=== PATIENT | female | born 1990 | race Two or more races ===

== ENCOUNTER → 2016-07-28 | Outpatient (CLI) | payer BC | END | disposition home or self-care (01) | LOC: LAB 10:00 | PROVIDERS: ATTEND Obstetrics & Gynecology | DX: R87.619 Unspecified abnormal cytological findings in specimens from cervix uteri (principal) ==

== ENCOUNTER → 2016-12-28 | Outpatient (CLI) | payer BC | END | disposition home or self-care (01) | LOC: LAB 09:13 | PROVIDERS: ATTEND Obstetrics & Gynecology | DX: Z34.00 Encounter for supervision of normal first pregnancy, unspecified trimester (principal) | CPT/HCPCS: 36415; 84144; 84702 ==

== ENCOUNTER → 2017-01-03 | Outpatient (CLI) | payer BC ==
[2017-01-03 10:06] LABS: Urine RBC None Seen /hpf (0 - 4)
[2017-01-03 10:34] LABS: Urine Bilirubin Negative (Negative); Urine Blood Negative /uL (Negative); Urine Color Yellow (Yellow); Urine Glucose Normal (Normal); Urine Ketone Negative (Negative); Urine Nitrite Negative (Negative); Urine Squamous Epithelial Cell FEW /hpf (<5); Urine Urobilinogen Normal (Negative)
== END | disposition home or self-care (01) ==
LOC: LAB 08:49
PROVIDERS: ATTEND Obstetrics & Gynecology
DX: Z34.80 Encounter for supervision of other normal pregnancy, unspecified trimester (principal); Z11.3 Encounter for screening for infections with a predominantly sexual mode of transmission; Z31.430 Encounter of female for testing for genetic disease carrier status for procreative management
CPT/HCPCS: 36415; 81001; 81220; 83036; 84702; 86703

== ENCOUNTER → 2017-02-21 | Outpatient (CLI) | payer BC ==
[2017-02-21 10:17] LABS: Basophils # (auto) 0 uL; Basophils % (auto) 0.3 % (0.0-2.0); Eosinophils # (auto) 0 uL; Eosinophils % (auto) 0.4 % (0.0-7.0); Hematocrit 42.5 % (36.0-46.0); Hemoglobin 14.8 g/dL (12.2-16.2); Lymphocytes # (auto) 2.3 uL; Lymphocytes % (auto) 21.3 % (10.0-50.0); Mean Corpuscular Hemoglobin 31.8 pg (28.0-32.0); Mean Platelet Volume 8.1 fL (6.9-10.8); Monocytes # (auto) 0.7 uL; Monocytes % (auto) 6.5 % (0.0-12.0); Neutrophils # (auto) 7.8 uL; Neutrophils % (auto) 71.5 % (37.0-80.0); Nucleated Red Blood Cells % 0.1 %; Platelet Count (auto) 284 10^3/uL (140-450); Red Cell Distribution Width 13.4 % (11.8-14.3); White Blood Cell 10.9 10^3/uL (4.4-10.8)
== END | disposition home or self-care (01) ==
LOC: LAB 09:51
PROVIDERS: ATTEND Obstetrics & Gynecology
DX: Z34.80 Encounter for supervision of other normal pregnancy, unspecified trimester (principal); R82.79 Other abnormal findings on microbiological examination of urine
CPT/HCPCS: 36415; 85025; 86592; 86762; 86850; 86900; 86901; 87086; 87340

== ENCOUNTER → 2017-05-31 | Outpatient (CLI) | payer BC ==
[2017-05-31 09:14] LABS: Basophils # (auto) 0 uL; Basophils % (auto) 0.3 % (0.0-2.0); Eosinophils # (auto) 0 uL; Eosinophils % (auto) 0.4 % (0.0-7.0); Hematocrit 38.3 % (36.0-46.0); Lymphocytes % (auto) 16.3 % (10.0-50.0); Mean Corpuscular Hemoglobin 30.7 pg (28.0-32.0); Mean Corpuscular Volume 90.3 fL (80.0-100.0); Mean Platelet Volume 7.9 fL (6.9-10.8); Monocytes # (auto) 0.8 uL; Monocytes % (auto) 6.5 % (0.0-12.0); Neutrophils # (auto) 9.4 uL; Neutrophils % (auto) 76.5 % (37.0-80.0); Nucleated Red Blood Cells % 0.1 %; Platelet Count (auto) 282 10^3/uL (140-450); White Blood Cell 12.3 10^3/uL (4.4-10.8)
== END | disposition home or self-care (01) ==
LOC: LAB 08:34
PROVIDERS: ATTEND Obstetrics & Gynecology
DX: O99.810 Abnormal glucose complicating pregnancy (principal); Z3A.00 Weeks of gestation of pregnancy not specified
CPT/HCPCS: 36415; 82951; 85025

== ENCOUNTER → 2017-07-11 | Outpatient (CLI) | payer BC ==
[~2017-07-11] MED LIST: PREN-153 OR
[2017-07-11 15:32] LABS: Alcohol, Urine < 3.0 mg/dL (0-5); Amphetamine Screen, Urine NEGATIVE (NEGATIVE); Barbiturate Scree,Urine NEGATIVE (NEGATIVE); Benzodiazephine Screen, Urine NEGATIVE (NEGATIVE); Cannabinoid Screen, Urine NEGATIVE (NEGATIVE); Cocaine Screen, Urine NEGATIVE (NEGATIVE); Opiate Scree,Urine NEGATIVE (NEGATIVE); Phencyclidine Screen, Urine NEGATIVE (NEGATIVE)
== END | disposition home or self-care (01) ==
LOC: LAB 14:57
PROVIDERS: ATTEND Obstetrics & Gynecology
DX: Z34.00 Encounter for supervision of normal first pregnancy, unspecified trimester (principal); Z3A.00 Weeks of gestation of pregnancy not specified
CPT/HCPCS: 80307

== ENCOUNTER → 2017-08-01 | Outpatient (CLI) | payer BC ==
[2017-08-01 09:54] LABS: Basophils # (auto) 0.1 uL; Basophils % (auto) 0.8 % (0.0-2.0); Eosinophils # (auto) 0.1 uL; Eosinophils % (auto) 0.6 % (0.0-7.0); Hematocrit 40.6 % (36.0-46.0); Hemoglobin 13.8 g/dL (12.2-16.2); Lymphocytes # (auto) 1.8 uL; Lymphocytes % (auto) 17.6 % (10.0-50.0); Mean Corpuscular Hemoglobin 30.4 pg (28.0-32.0); Mean Corpuscular Volume 89.4 fL (80.0-100.0); Monocytes # (auto) 0.7 uL; Monocytes % (auto) 6.5 % (0.0-12.0); Neutrophils # (auto) 7.8 uL; Neutrophils % (auto) 74.5 % (37.0-80.0); Nucleated Red Blood Cells % 0.1 %; Platelet Count (auto) 298 10^3/uL (140-450); Red Blood Cells 4.54 10^6/uL (4.0-5.20); Red Cell Distribution Width 14.2 % (11.8-14.3); White Blood Cell 10.4 10^3/uL (4.4-10.8)
[2017-08-02 02:10] LABS: RPR Non Reactive (Non Reactive)
== END | disposition home or self-care (01) ==
LOC: LAB 08:41
PROVIDERS: ATTEND Obstetrics & Gynecology
DX: O23.599 Infection of other part of genital tract in pregnancy, unspecified trimester (principal); Z3A.00 Weeks of gestation of pregnancy not specified
CPT/HCPCS: 36415; 85025; 86592; 87081

== ENCOUNTER 2017-08-21 20:10 | Observation (INO) | payer BC ==
[2017-08-22] MEDS ORDERED: PREN-153 OR (01:14)
== END 2017-08-21 23:17 | disposition home or self-care (01) | DRG 781 ==
LOC: LDRP 20:10
PROVIDERS: ADMIT Obstetrics & Gynecology; ATTEND Obstetrics & Gynecology
DX: O26.893 Other specified pregnancy related conditions, third trimester (principal); M54.9 Dorsalgia, unspecified; O62.9 Abnormality of forces of labor, unspecified; R10.9 Unspecified abdominal pain; Z3A.38 38 weeks gestation of pregnancy
CPT/HCPCS: 59025; 81002; G0378

== ENCOUNTER 2017-08-27 14:55 | Observation (INO) | payer BC | END 2017-08-27 15:55 | disposition home or self-care (01) | DRG 782 | LOC: LDRP 14:55 | PROVIDERS: ADMIT Specialist; ATTEND Specialist | DX: O62.9 Abnormality of forces of labor, unspecified (principal); Z3A.39 39 weeks gestation of pregnancy | CPT/HCPCS: 59025; 81002; G0378 ==

== ENCOUNTER 2017-08-31 03:05 | Inpatient (IN) | payer BC ==
[~2017-08-31] VITALS: Ht 149.9 cm; Wt 85.3 kg
[2017-08-31] MEDS ORDERED: LACT. RINGERS/OXYTOCIN 20UNITS 1,000 ML IV SCH ×2 (03:10→09:59)
[2017-08-31] MEDS ORDERED: PROMETHAZINE HCL 25 MG/ML 1ML IV PRN (03:15)
[2017-08-31] MEDS ORDERED: WITCH HAZEL-GLYCERIN PAD TOP PRN (03:15)
[2017-08-31] MEDS ORDERED: DERMOPLAST 60ML BOTTLE TOP PRN (03:15)
[2017-08-31] MEDS ORDERED: LIDOCAINE 2% (LOCAL ANESTH.) PF 5ml SDV ID PRN (03:15)
[2017-08-31] MEDS ORDERED: NALBUPHINE HCL 10 MG/1ml INJECTION IV PRN (03:15)
[2017-08-31] MEDS ORDERED: PHISODERM TOP SOLN 240ML BTL TOP PRN (03:15)
[2017-08-31] MEDS ORDERED: METHYLERGONOVINE MALEATE 0.2 MG/ML AMP IM PRN (03:15)
[2017-08-31 04:00] LABS: Urine Bacteria FEW /hpf (None Seen); Urine Blood Negative /uL (Negative); Urine Mucus FEW (None Seen); Urine Specific Gravity 1.016 (1.001-1.035); Urine WBC 2 /hpf (0 - 5)
[2017-08-31 04:01] LABS: Basophils # (auto) 0 uL; Basophils % (auto) 0.3 % (0.0-2.0); Eosinophils # (auto) 0.1 uL; Eosinophils % (auto) 0.5 % (0.0-7.0); Hematocrit 41.6 % (36.0-46.0); Hemoglobin 13.9 g/dL (12.2-16.2); Lymphocytes # (auto) 1.8 uL; Lymphocytes % (auto) 15.4 % (10.0-50.0); Mean Corpuscular Hgb Conc. 33.4 g/dL (32.0-36.0); Mean Corpuscular Volume 89.8 fL (80.0-100.0); Monocytes # (auto) 0.7 uL; Monocytes % (auto) 5.9 % (0.0-12.0); Neutrophils % (auto) 77.9 % (37.0-80.0); Platelet Count (auto) 271 10^3/uL (140-450); Red Blood Cells 4.63 10^6/uL (4.0-5.20); Red Cell Distribution Width 14.8 % (11.8-14.3); White Blood Cell 11.6 10^3/uL (4.4-10.8)
[2017-08-31 04:11] LABS: Albumin 2.7 g/dL (3.4-5.0); BUN/Creatinine Ratio 15.1; Calcium 9.5 mg/dL (8.5-10.1); Potassium 3.3 mmol/L (3.5-5.1)
[2017-08-31 04:14] LABS: Bilirubin, Total 0.2 mg/dL (0.2-1.0)
[2017-08-31 04:15] LABS: INR 0.9 (0.9-1.15); Partial Thromboplastin Time 26.8 sec (22.64-33.71); Prothrombin Time 9.8 sec (9.37-12.3)
[2017-08-31] MEDS ORDERED: LIDOCAINE 2% (LOCAL ANESTH.) PF 5ml SDV IJ PRN (06:00)
[2017-08-31] MEDS: LACTATED RINGER'S 1,000 ML IV SCH ×3 (06:57→19:10)
[2017-08-31] MEDS ORDERED: fentaNYL W ROPIVACAINE 150 ML EPI SCH ×2 (08:00→09:45)
[2017-08-31] MEDS ORDERED: fentaNYL CITRATE 100 MCG/2 ML VL IV ONE (08:00)
[2017-08-31] MEDS ORDERED: ePHEDrine SULFATE 50 MG/ML AMP IV ONE ×2 (08:00→09:45)
[2017-08-31] MEDS ORDERED: LIDOCAINE HCL 2 %PF INJ 10ML AMP IJ ONE (08:00)
[2017-08-31] MEDS ORDERED: SODIUM CHLORIDE 0.9% 500 ML IV PRN (09:39)
[2017-08-31] MEDS ORDERED: NALOXONE HCL 0.4 MG/ML VIAL IV ONE (09:45)
[2017-08-31] MEDS ORDERED: TERBUTALINE SULFATE 1 MG/ML 1ML VIAL SC ONE (10:00)
[2017-08-31] MEDS ORDERED: ceFAZolin 1GM/50ML 50 ML IV ONE (11:30)
[2017-08-31] MEDS ORDERED: LIDOCAINE 2% (LOCAL ANESTH.) PF 5ml SDV ID ONE (17:30)
[2017-08-31] MEDS: ceFAZolin 1GM/50ML 50 ML IV SCH (18:00)
[2017-08-31] MEDS ORDERED: AMPICILLIN SOD 500 MG INJ ONE (21:21)
[2017-08-31] MEDS ORDERED: AMPICILLIN SOD 2GM INJ 2 GM in SODIUM CHL 0.9% 100 ML IV ONE (21:30)
[2017-08-31] MEDS ORDERED: ACETAMINOPHEN IV 1000 MG/100ML (10MG/ML) IV SCH (21:45)
[2017-09-01] VITALS (8 sets, daily range): BP systolic 84–104; BP diastolic 50–60
[2017-09-01] MEDS: ceFAZolin 1GM/50ML 50 ML IV SCH
[2017-09-01] MEDS ORDERED: IBUPROFEN 600 MG TAB PO ONE (01:19)
[2017-09-01] MEDS ORDERED: LACT. RINGERS/OXYTOCIN 20UNITS 500 ML IV ONE (01:24)
[2017-09-01] MEDS: LACTATED RINGER'S 1,000 ML IV SCH (03:10)
[2017-09-01] MEDS: IBUPROFEN 600 MG TAB PO PRN ×4 (05:34→16:06)
[2017-09-01] MEDS ORDERED: DOCUSATE CALCIUM 240 MG CAP PO SCH (10:00)
[2017-09-01] MEDS ORDERED: HYDROcodone-ACET 5/325MG TAB ONE (12:57)
[2017-09-01] MEDS: HYDROcodone-ACET 5/325MG TAB PO PRN (17:31)
[2017-09-02 00:35] VITALS: BP 99/58
[2017-09-02] MEDS: HYDROcodone-ACET 5/325MG TAB PO PRN (00:40)
[2017-09-02] MEDS: IBUPROFEN 600 MG TAB PO PRN (04:21)
[2017-09-02 04:42] VITALS: BP 101/59
[2017-09-02 07:01] LABS: Bilirubin,Neonatal Direct < 0.1 mg/dL (0.0-0.3); Bilirubin,Neonatal Total 0.2 mg/dL (0.1-12.0)
[2017-09-02 07:15] VITALS: BP 98/56
[2017-09-02 10:47] VITALS: BP 98/56
== END 2017-09-02 11:05 | disposition home or self-care (01) | DRG 775 ==
LOC: LDRP 03:05 → EEVIPCON 03:05
PROVIDERS: ADMIT Obstetrics & Gynecology; ATTEND Obstetrics & Gynecology
PROC: 3E033VJ Introduction of Other Hormone into Peripheral Vein, Percutaneous Approach (ICD-10-PCS; principal; 2017-08-31)
PROC: 10907ZC Drainage of Amniotic Fluid, Therapeutic from Products of Conception, Via Natural or Artificial Opening (ICD-10-PCS; 2017-08-31)
PROC: 10D07Z6 Extraction of Products of Conception, Vacuum, Via Natural or Artificial Opening (ICD-10-PCS; 2017-08-31)
PROC: 0KQM0ZZ Repair Perineum Muscle, Open Approach (ICD-10-PCS; 2017-08-31)
PROC: 00HU33Z Insertion of Infusion Device into Spinal Canal, Percutaneous Approach (ICD-10-PCS; 2017-08-31)
PROC: 3E0R3BZ Introduction of Anesthetic Agent into Spinal Canal, Percutaneous Approach (ICD-10-PCS; 2017-08-31)
DX: O77.0 Labor and delivery complicated by meconium in amniotic fluid (principal); O70.1 Second degree perineal laceration during delivery; Z37.0 Single live birth; Z3A.39 39 weeks gestation of pregnancy; Z90.49 Acquired absence of other specified parts of digestive tract
CPT/HCPCS: 36415; 51702; 59025; 59409; 62282; 80053; 81001; 82247; 82248; 85025; 85610; 85730; 86850; 86900; 86901; 94762; 96361; 96365; 96366; J0131; J0690; J2590; J3010

== ENCOUNTER → 2020-01-06 | Outpatient (CLI) | payer OTHER | END | disposition home or self-care (01) | LOC: LAB 15:55 | PROVIDERS: ATTEND Nurse Practitioner Family | DX: Z20.828 Contact with and (suspected) exposure to other viral communicable diseases (principal) ==

== ENCOUNTER → 2020-01-15 | Outpatient (CLI) | payer BC | END | disposition home or self-care (01) | LOC: LAB 10:10 | PROVIDERS: ATTEND Obstetrics & Gynecology | DX: Z34.80 Encounter for supervision of other normal pregnancy, unspecified trimester (principal) | CPT/HCPCS: 36415; 84144; 84702 ==

== ENCOUNTER → 2020-03-11 | Outpatient (CLI) | payer BC ==
[2020-03-11 12:17] LABS: Basophils # (auto) 0 10 ^3/uL (0-0.2); Basophils % (auto) 0.3 % (0.0-2.0); Eosinophils # (auto) 0 10 ^3/uL (0-0.8); Eosinophils % (auto) 0.2 % (0.0-7.0); Hematocrit 41.9 % (36.0-46.0); Hemoglobin 14.1 g/dL (12.2-16.2); Lymphocytes # (auto) 2.5 10 ^3/uL (0.4-5.4); Lymphocytes % (auto) 23.7 % (10.0-50.0); Mean Corpuscular Hemoglobin 29.6 pg (28.0-32.0); Mean Corpuscular Hgb Conc. 33.6 g/dL (32.0-36.0); Mean Corpuscular Volume 87.9 fL (80.0-100.0); Monocytes # (auto) 0.6 10 ^3/uL (0-1.3); Monocytes % (auto) 5.6 % (0.0-12.0); Neutrophils # (auto) 7.3 10 ^3/uL (1.6-8.6); Neutrophils % (auto) 70.2 % (37.0-80.0); Platelet Count (auto) 295 10^3/uL (140-450); Red Blood Cells 4.76 10^6/uL (4.0-5.20); Red Cell Distribution Width 14.1 % (11.8-14.3); White Blood Cell 10.3 10^3/uL (4.4-10.8)
[2020-03-11 12:37] LABS: Amphetamine Screen, Urine NEGATIVE (NEGATIVE); Barbiturate Scree,Urine NEGATIVE (NEGATIVE); Benzodiazephine Screen, Urine NEGATIVE (NEGATIVE); Cannabinoid Screen, Urine NEGATIVE (NEGATIVE); Cocaine Screen, Urine NEGATIVE (NEGATIVE); Opiate Scree,Urine NEGATIVE (NEGATIVE); Phencyclidine Screen, Urine NEGATIVE (NEGATIVE)
[2020-03-12 06:06] LABS: RPR Non Reactive (Non Reactive)
== END | disposition home or self-care (01) ==
LOC: LAB 11:45
PROVIDERS: ATTEND Obstetrics & Gynecology
DX: Z34.80 Encounter for supervision of other normal pregnancy, unspecified trimester (principal); Z31.430 Encounter of female for testing for genetic disease carrier status for procreative management; Z72.51 High risk heterosexual behavior; Z3A.00 Weeks of gestation of pregnancy not specified
CPT/HCPCS: 36415; 80307; 81220; 84112; 84144; 84702; 85025; 86592; 86703; 86706; 86762; 86850; 86900; 86901; 87086

== ENCOUNTER → 2020-04-27 | Outpatient (CLI) | payer OTHER ==
[~2020-04-27] MED LIST changes: -PREN-153 OR; +PREN1TAB71 OR
== END | disposition home or self-care (01) ==
LOC: LAB 11:05
PROVIDERS: ATTEND Nurse Practitioner Family
DX: Z20.828 Contact with and (suspected) exposure to other viral communicable diseases (principal)
CPT/HCPCS: C9803; U0003

== ENCOUNTER → 2020-06-26 | Outpatient (CLI) | payer BC ==
[2020-06-26 08:29] LABS: Basophils # (auto) 0.1 10 ^3/uL (0-0.2); Basophils % (auto) 0.9 % (0.0-2.0); Eosinophils # (auto) 0.1 10 ^3/uL (0-0.8); Eosinophils % (auto) 0.7 % (0.0-7.0); Hematocrit 37.4 % (36.0-46.0); Lymphocytes # (auto) 1.9 10 ^3/uL (0.4-5.4); Lymphocytes % (auto) 18.3 % (10.0-50.0); Mean Corpuscular Hemoglobin 30.8 pg (28.0-32.0); Mean Corpuscular Hgb Conc. 34.7 g/dL (32.0-36.0); Mean Corpuscular Volume 88.9 fL (80.0-100.0); Monocytes # (auto) 0.6 10 ^3/uL (0-1.3); Monocytes % (auto) 6.1 % (0.0-12.0); Neutrophils # (auto) 7.8 10 ^3/uL (1.6-8.6); Platelet Count (auto) 242 10^3/uL (140-450); Red Blood Cells 4.21 10^6/uL (4.0-5.20); Red Cell Distribution Width 14.7 % (11.8-14.3); White Blood Cell 10.5 10^3/uL (4.4-10.8)
== END | disposition home or self-care (01) ==
LOC: LAB 08:11
PROVIDERS: ATTEND Obstetrics & Gynecology
DX: Z34.80 Encounter for supervision of other normal pregnancy, unspecified trimester (principal); Z3A.00 Weeks of gestation of pregnancy not specified
CPT/HCPCS: 36415; 82951; 85025

== ENCOUNTER → 2020-08-19 | Outpatient (CLI) | payer BC ==
[2020-08-19 12:58] LABS: Basophils # (auto) 0 10 ^3/uL (0-0.2); Basophils % (auto) 0.2 % (0.0-2.0); Eosinophils # (auto) 0 10 ^3/uL (0-0.8); Eosinophils % (auto) 0.4 % (0.0-7.0); Hematocrit 39.8 % (36.0-46.0); Hemoglobin 13.7 g/dL (12.2-16.2); Lymphocytes # (auto) 1.6 10 ^3/uL (0.4-5.4); Lymphocytes % (auto) 16.9 % (10.0-50.0); Mean Corpuscular Hemoglobin 30.5 pg (28.0-32.0); Mean Corpuscular Hgb Conc. 34.4 g/dL (32.0-36.0); Mean Corpuscular Volume 88.5 fL (80.0-100.0); Monocytes # (auto) 0.7 10 ^3/uL (0-1.3); Monocytes % (auto) 7.3 % (0.0-12.0); Neutrophils # (auto) 7.2 10 ^3/uL (1.6-8.6); Neutrophils % (auto) 75.2 % (37.0-80.0); Nucleated Red Blood Cells % 0.1 %; Platelet Count (auto) 235 10^3/uL (140-450); Red Cell Distribution Width 14.7 % (11.8-14.3); White Blood Cell 9.6 10^3/uL (4.4-10.8)
[2020-08-20 07:06] LABS: RPR Non Reactive (Non Reactive)
== END | disposition home or self-care (01) ==
LOC: LAB 12:21
PROVIDERS: ATTEND Obstetrics & Gynecology
DX: Z34.83 Encounter for supervision of other normal pregnancy, third trimester (principal); Z3A.35 35 weeks gestation of pregnancy
CPT/HCPCS: 36415; 84112; 85025; 86592

== ENCOUNTER 2020-09-07 01:40 | Observation (INO) | payer BC ==
[~2020-09-07] VITALS: Ht 149.9 cm; Wt 90.7 kg
== END 2020-09-07 03:17 | disposition home or self-care (01) ==
LOC: LDRP 01:40
PROVIDERS: ADMIT Obstetrics & Gynecology; ATTEND Obstetrics & Gynecology
DX: O62.9 Abnormality of forces of labor, unspecified (principal); Z3A.38 38 weeks gestation of pregnancy
CPT/HCPCS: 59025; 81002; G0378

== ENCOUNTER 2020-09-11 16:50 | Inpatient (IN) | payer BC ==
[~2020-09-11] VITALS: Ht 149.9 cm; Wt 90.7 kg
[2020-09-11] MEDS ORDERED: LIDOCAINE 2%HCL (LOCAL ANESTH.) INJ 20ML MDV IJ ONE (19:00)
[2020-09-11] MEDS ORDERED: WITCH HAZEL-GLYCERIN PAD TOP PRN (19:00)
[2020-09-11] MEDS ORDERED: PROMETHAZINE HCL 25 MG/ML 1ML IM PRN (19:00)
[2020-09-11] MEDS ORDERED: PROMETHAZINE HCL 25 MG/ML 1ML IV PRN (19:00)
[2020-09-11] MEDS ORDERED: PHISODERM TOP SOLN 240ML BTL TOP PRN (19:00)
[2020-09-11] MEDS ORDERED: DERMOPLAST 60ML BOTTLE TOP PRN (19:00)
[2020-09-11] MEDS ORDERED: BUTORPHANOL TARTRATE 2 MG/1 ML VIAL IV PRN ×2 (19:00)
[2020-09-11] MEDS ORDERED: LACT. RINGERS/OXYTOCIN 20UNITS 1,000 ML IV SCH (19:00)
[2020-09-11] MEDS ORDERED: LACT. RINGERS/OXYTOCIN 20UNITS 1,000 ML IV ONE (19:00)
[2020-09-11 19:37] LABS: Basophils # (auto) 0 10 ^3/uL (0-0.2); Basophils % (auto) 0.3 % (0.0-2.0); Eosinophils # (auto) 0 10 ^3/uL (0-0.8); Eosinophils % (auto) 0.3 % (0.0-7.0); Hematocrit 40.1 % (36.0-46.0); Hemoglobin 14.1 g/dL (12.2-16.2); Lymphocytes # (auto) 1.5 10 ^3/uL (0.4-5.4); Lymphocytes % (auto) 16.5 % (10.0-50.0); Mean Corpuscular Hemoglobin 31.5 pg (28.0-32.0); Mean Corpuscular Hgb Conc. 35.1 g/dL (32.0-36.0); Mean Corpuscular Volume 89.6 fL (80.0-100.0); Monocytes # (auto) 0.5 10 ^3/uL (0-1.3); Monocytes % (auto) 5.7 % (0.0-12.0); Neutrophils % (auto) 77.2 % (37.0-80.0); Nucleated Red Blood Cells % 0.1 %; Platelet Count (auto) 220 10^3/uL (140-450); Red Blood Cells 4.47 10^6/uL (4.0-5.20); Red Cell Distribution Width 14.8 % (11.8-14.3); White Blood Cell 9.1 10^3/uL (4.4-10.8)
[2020-09-11 19:39] LABS: Urine Amorphous Crystal FEW /hpf (None Seen); Urine Bacteria FEW /hpf (None Seen); Urine Blood Negative /uL (Negative); Urine Mucus FEW (None Seen); Urine Specific Gravity 1.012 (1.001-1.035); Urine WBC 21 /hpf (0 - 5)
[2020-09-11 19:49] LABS: Albumin 2.6 g/dL (3.4-5.0); Potassium 3.6 mmol/L (3.5-5.1)
[2020-09-11 19:52] LABS: BUN/Creatinine Ratio 13.8; Bilirubin, Total 0.2 mg/dL (0.2-1.0)
[2020-09-11 19:54] LABS: INR 0.95 (0.9-1.15); Partial Thromboplastin Time 26.8 sec (23.0-31.2)
[2020-09-11 20:04] LABS: Alcohol, Urine < 3.0 mg/dL (0-10); Amphetamine Screen, Urine NEGATIVE (NEGATIVE); Barbiturate Scree,Urine NEGATIVE (NEGATIVE); Benzodiazephine Screen, Urine NEGATIVE (NEGATIVE); Cannabinoid Screen, Urine NEGATIVE (NEGATIVE); Cocaine Screen, Urine NEGATIVE (NEGATIVE); Opiate Scree,Urine NEGATIVE (NEGATIVE); Phencyclidine Screen, Urine NEGATIVE (NEGATIVE)
[2020-09-11] MEDS ORDERED: LIDOCAINE HCL 2 %PF INJ 10ML AMP IJ ONE ×2 (21:15→22:45)
[2020-09-11] MEDS ORDERED: fentaNYL CITRATE 100 MCG/2 ML VL IV ONE (21:15)
[2020-09-11] MEDS ORDERED: LACTATED RINGER'S 1,000 ML IV ONE ×2 (21:15→22:45)
[2020-09-11] MEDS ORDERED: NALOXONE HCL 0.4 MG/ML VIAL IV ONE ×2 (21:15→22:45)
[2020-09-11] MEDS ORDERED: ROPIVACAINE HCL 200 ML EPI SCH ×3 (21:15→23:00)
[2020-09-11] MEDS ORDERED: ePHEDrine SULFATE 50 MG/ML AMP IV ONE ×2 (21:15→22:45)
[2020-09-11] MEDS: LACTATED RINGER'S 1,000 ML IV SCH ×2 (22:14→22:44)
[2020-09-12] MEDS: LACTATED RINGER'S 1,000 ML IV SCH (05:52)
[2020-09-12] MEDS: IBUPROFEN 600 MG TAB PO PRN ×3 (10:08→17:40)
[2020-09-12 11:32] VITALS: BP 100/57
[2020-09-12 15:00] VITALS: BP 120/55
[2020-09-12 18:45] VITALS: BP 99/53
[2020-09-12] MEDS: ACETAMINOPHEN 325 MG TAB PO PRN (21:41)
[2020-09-12] MEDS: DOCUSATE SOD 100 MG CAP PO SCH (21:41)
[2020-09-12 23:00] VITALS: BP 116/62
[2020-09-13] MEDS: IBUPROFEN 600 MG TAB PO PRN ×2 (01:05→11:26)
[2020-09-13 03:00] VITALS: BP 105/55
[2020-09-13] MEDS: ACETAMINOPHEN 325 MG TAB PO PRN ×2 (03:10→08:13)
[2020-09-13 06:06] LABS: RPR Non Reactive (Non Reactive)
[2020-09-13 07:00] VITALS: BP_SYST 100; BP_SYST 120; BP_DIAS 55; BP_DIAS 57
[2020-09-13 11:00] VITALS: BP 104/57
[2020-09-13] MEDS: DOCUSATE SOD 100 MG CAP PO SCH (11:26)
== END 2020-09-13 12:15 | disposition home or self-care (01) | DRG 807 ==
LOC: LDRP 16:50 → EEVIPCON 16:50 → OBSVTOIN 18:30
PROVIDERS: ADMIT Specialist; ATTEND Specialist
PROC: 10E0XZZ Delivery of Products of Conception, External Approach (ICD-10-PCS; principal; 2020-09-12)
PROC: 3E0R3BZ Introduction of Anesthetic Agent into Spinal Canal, Percutaneous Approach (ICD-10-PCS; 2020-09-12)
PROC: 00HU33Z Insertion of Infusion Device into Spinal Canal, Percutaneous Approach (ICD-10-PCS; 2020-09-12)
DX: O77.0 Labor and delivery complicated by meconium in amniotic fluid (principal); Z37.0 Single live birth; O76 Abnormality in fetal heart rate and rhythm complicating labor and delivery; Z3A.38 38 weeks gestation of pregnancy; Z20.822 Contact with and (suspected) exposure to COVID-19
CPT/HCPCS: 36415; 59025; 59409; 80053; 80307; 81001; 81002; 84112; 85025; 85610; 85730; 86592; 86850; 86900; 86901; 87426; 94760; 96360; 96361; 96365; 96366; G0378; J2590

== ENCOUNTER → 2021-11-03 | Outpatient (CLI) | payer BC | END | disposition home or self-care (01) | LOC: LAB 12:44 | PROVIDERS: ATTEND Nurse Practitioner | DX: Z20.822 Contact with and (suspected) exposure to COVID-19 (principal) | CPT/HCPCS: C9803; U0003 ==

== ENCOUNTER → 2021-11-30 | Outpatient (CLI) | payer BC ==
[2021-11-30 11:23] LABS: Basophils # (auto) 0 10 ^3/uL (0-0.2); Basophils % (auto) 0.5 % (0.0-2.0); Eosinophils # (auto) 0.1 10 ^3/uL (0-0.8); Eosinophils % (auto) 0.7 % (0.0-7.0); Hematocrit 40.5 % (36.0-46.0); Hemoglobin 13.7 g/dL (12.2-16.2); Mean Corpuscular Hemoglobin 29.1 pg (28.0-32.0); Mean Corpuscular Hgb Conc. 33.7 g/dL (32.0-36.0); Mean Corpuscular Volume 86.3 fL (80.0-100.0); Monocytes # (auto) 0.7 10 ^3/uL (0-1.3); Monocytes % (auto) 7.5 % (0.0-12.0); Neutrophils # (auto) 5.1 10 ^3/uL (1.6-8.6); Neutrophils % (auto) 57.3 % (37.0-80.0); Red Cell Distribution Width 13.7 % (11.8-14.3); White Blood Cell 8.9 10^3/uL (4.4-10.8)
== END | disposition home or self-care (01) ==
LOC: LAB 11:08
PROVIDERS: ATTEND Student in an Organized Health Care Education/Training Program
DX: D64.9 Anemia, unspecified (principal)
CPT/HCPCS: 36415; 85025

== ENCOUNTER 2022-04-06 11:37 | Day surgery (SDC) | payer BC ==
[2022-04-04 12:33] LABS: Basophils # (auto) 0.1 10 ^3/uL (0-0.2); Basophils % (auto) 1.2 % (0.0-2.0); Eosinophils # (auto) 0.1 10 ^3/uL (0-0.8); Eosinophils % (auto) 0.5 % (0.0-7.0); Hematocrit 43.3 % (36.0-46.0); Hemoglobin 14.5 g/dL (12.2-16.2); Lymphocytes # (auto) 3.3 10 ^3/uL (0.4-5.4); Lymphocytes % (auto) 30.6 % (10.0-50.0); Mean Corpuscular Hemoglobin 28.8 pg (28.0-32.0); Mean Corpuscular Hgb Conc. 33.6 g/dL (32.0-36.0); Mean Corpuscular Volume 85.8 fL (80.0-100.0); Monocytes # (auto) 0.5 10 ^3/uL (0-1.3); Monocytes % (auto) 4.2 % (0.0-12.0); Neutrophils # (auto) 6.9 10 ^3/uL (1.6-8.6); Neutrophils % (auto) 63.5 % (37.0-80.0); Red Blood Cells 5.05 10^6/uL (4.0-5.20); Red Cell Distribution Width 13.8 % (11.8-14.3); White Blood Cell 10.9 10^3/uL (4.4-10.8)
[2022-04-04 12:46] LABS: INR 0.98 (0.9-1.15); Partial Thromboplastin Time 27.9 sec (24.6-33.4)
[2022-04-04 12:51] LABS: Albumin 3.8 g/dL (3.4-5.0); Calcium 8.9 mg/dL (8.5-10.1); Potassium 3.5 mmol/L (3.5-5.1)
[2022-04-04 12:54] LABS: BUN/Creatinine Ratio 14.9; Bilirubin, Total 0.3 mg/dL (0.2-1.0); Total Protein 7.9 g/dL (6.4-8.2)
[2022-04-04 13:07] LABS: Urine Bacteria FEW /hpf (None Seen); Urine Blood TRACE /uL (Negative); Urine Specific Gravity 1.025 (1.001-1.035); Urine WBC 26 /hpf (0 - 5)
[~2022-04-06] VITALS: Ht 149.9 cm; Wt 81.6 kg
[2022-04-06] MEDS ORDERED: PROPOFOL 10 MG/ML 20 ML IV ONE (13:02)
[2022-04-06] MEDS ORDERED: MIDAZOLAM HCL 2MG/2ML 2ml VIAL (1mg/ml) ONE (13:02)
[2022-04-06] MEDS ORDERED: fentaNYL CITRATE 100 MCG/2 ML VL IV PRN (14:00)
[2022-04-06] MEDS ORDERED: ONDANSETRON HCL 4 MG/2 ML VIAL IV PRN (14:00)
[2022-04-06 14:30] VITALS: BP 121/68
== END 2022-04-06 14:30 | disposition home or self-care (01) ==
LOC: GI 11:37
PROVIDERS: ATTEND Internal Medicine Gastroenterology
DX: K62.5 Hemorrhage of anus and rectum (principal); K64.0 First degree hemorrhoids; D17.5 Benign lipomatous neoplasm of intra-abdominal organs; Z90.49 Acquired absence of other specified parts of digestive tract; Z20.822 Contact with and (suspected) exposure to COVID-19
CPT/HCPCS: 36415; 45378; 80053; 81001; 81025; 84702; 85025; 85610; 85730; J2250; J2704; J7030; U0003

== ENCOUNTER → 2022-04-19 | Outpatient (CLI) | payer BC ==
[2022-04-19 14:04] LABS: Urine Bacteria NONE SEEN /hpf (None Seen); Urine Blood 3+ /uL (Negative); Urine Mucus FEW (None Seen); Urine Specific Gravity 1.022 (1.001-1.035); Urine WBC 31 /hpf (0 - 5)
== END | disposition home or self-care (01) ==
LOC: LAB 13:18
PROVIDERS: ATTEND Internal Medicine Gastroenterology
DX: N39.0 Urinary tract infection, site not specified (principal)
CPT/HCPCS: 81001; 87086

== ENCOUNTER → 2022-09-28 | Outpatient (CLI) | payer BC ==
[2022-09-28 09:10] LABS: Cholesterol 205 mg/dL (< 200); HDL Cholesterol 53 mg/dL (40-59); LDL Cholesterol 134 mg/dL (< 100); Triglycerides 127 mg/dL (< 150)
== END | disposition home or self-care (01) ==
LOC: LAB 08:20
PROVIDERS: ATTEND Student in an Organized Health Care Education/Training Program
DX: E66.9 Obesity, unspecified (principal)
CPT/HCPCS: 36415; 80061

== ENCOUNTER → 2023-06-27 | Outpatient (CLI) | payer BC ==
[2023-06-27 16:41] LABS: Urine Epithelial Cast None Seen /hpf (<5)
[2023-06-27 18:06] LABS: Urine Bacteria FEW /hpf (None Seen); Urine Blood 3+ /uL (Negative); Urine Clarity HAZY (Clear); Urine Color Yellow (Yellow); Urine Protein, UAD 1+ (Negative); Urine Specific Gravity 1.015 (1.001-1.035); Urine Urobilinogen Normal (Negative); Urine WBC 14 /hpf (0 - 5)
== END | disposition home or self-care (01) ==
LOC: LAB 16:38
PROVIDERS: ATTEND Obstetrics & Gynecology
DX: N39.0 Urinary tract infection, site not specified (principal)
CPT/HCPCS: 81001; 87086

== ENCOUNTER → 2025-01-17 | Outpatient (CLI) | payer BC ==
[2025-01-17 08:49] LABS: Hematocrit 42.3 % (36.0-46.0); Hemoglobin 14.5 g/dL (12.2-16.2); Mean Corpuscular Hemoglobin 29.7 pg (28.0-32.0); Mean Corpuscular Volume 86.4 fL (80.0-100.0); Nucleated Red Blood Cells % 0.0 %
[2025-01-17 09:29] LABS: Alanine Aminotransferase 19 U/L (7-40); Albumin 4.8 g/dL (3.2-4.8); Alkaline Phosphatase 101 U/L (46-116); Anion Gap 9 (5-15); BUN/Creatinine Ratio 10.1 (10.0-20.0); Calcium 9.4 mg/dL (8.7-10.4); Carbon Dioxide 25 mmol/L (20-31); Chloride 105 mmol/L (98-107); Cholesterol 198 mg/dL (< 200); Glucose 87 mg/dL (74-106); HDL Cholesterol 52 mg/dL (40-59); Potassium 4.0 mmol/L (3.5-5.1); Sodium 139 mmol/L (136-145); Total Protein 7.6 g/dL (5.7-8.2); Triglycerides 141 mg/dL (< 150)
[2025-01-17 09:30] LABS: Bilirubin, Total 0.4 mg/dL (0.2-1.0)
[2025-01-17 09:31] LABS: Blood Urea Nitrogen 7 mg/dL (9-23)
== END | disposition home or self-care (01) ==
LOC: LAB 08:23
PROVIDERS: ATTEND Nurse Practitioner Family
DX: E78.5 Hyperlipidemia, unspecified (principal); E66.9 Obesity, unspecified; Z00.01 Encounter for general adult medical examination with abnormal findings
CPT/HCPCS: 36415; 80053; 80061; 82306; 84443; 85025